=== PATIENT | female | born 1960 | race Caucasian/White ===

== ENCOUNTER 2018-03-17 21:18 | Emergency (ER) | payer OTHER ==
[~2018-03-17] VITALS: Ht 170.2 cm; Wt 124.7 kg
[2018-03-17] MEDS ORDERED: COZAAR 50 MG TA50 M1 (21:34)
[2018-03-17] MEDS ORDERED: ATENOLOL 50MG T50 M1 (21:34)
[2018-03-17] MEDS ORDERED: CELEXA20 MG (21:35)
[2018-03-17] MEDS ORDERED: CYMBALTA60 MG (21:35)
[2018-03-17] MEDS ORDERED: METFORMIN (21:36)
[2018-03-17] MEDS ORDERED: FEXOFENADINE (21:36)
[2018-03-17] MEDS ORDERED: CHOLECALCIFEROL (21:36)
[2018-03-17] MEDS ORDERED: IBUPROFEN 800800 M1 (21:37)
[2018-03-17] MEDS ORDERED: VITAMIN D3400 UNIT (21:37)
[2018-03-17] MEDS ORDERED: MEDROLDOSEPACK PO (22:52)
[2018-03-17] MEDS ORDERED: NAPROSYN500 MG PO (22:52)
[2018-03-17] MEDS ORDERED: ZANAFLEX4 MG PO (22:52)
[2018-03-17 23:05] VITALS: BP 145/72
== END 2018-03-17 23:05 | disposition home or self-care (01) ==
LOC: M.ERS 21:18
DX: M54.31 Sciatica, right side (principal); I10 Essential (primary) hypertension; E11.9 Type 2 diabetes mellitus without complications; F32.9 Major depressive disorder, single episode, unspecified

== ENCOUNTER 2019-05-04 11:55 | Emergency (ER) | payer OTHER ==
[~2019-05-04] VITALS: Ht 170.2 cm; Wt 111.1 kg
[~2019-05-04 11:55] MED LIST: ATENOLOL 50MG T50 M1; CELEXA20 MG; CHOLECALCIFEROL; COZAAR 50 MG TA50 M1; CYMBALTA60 MG; FEXOFENADINE; IBUPROFEN 800800 M1; MEDROLDOSEPACK PO; METFORMIN; NAPROSYN500 MG PO; VITAMIN D3400 UNIT; ZANAFLEX4 MG PO
[2019-05-04] MEDS ORDERED: ALLEGRA ALLERG180 MG PO (12:11)
[2019-05-04] MEDS ORDERED: CRANBERRY200 MG PO (12:11)
[2019-05-04] MEDS ORDERED: TRAMADOL 50 MG50 MG PO (12:11)
[2019-05-04] MEDS ORDERED: OMEPRAZOLE 20 M20 M1 PO (12:11)
[2019-05-04] MEDS ORDERED: ZOFRAN4 MG PO (12:57)
[2019-05-04] MEDS ORDERED: HYDROCODON-ACE1 EAC7 PO (12:57)
[2019-05-04 13:21] VITALS: BP 121/87
== END 2019-05-04 13:22 | disposition home or self-care (01) ==
LOC: M.ERS 11:55
DX: S42.292A Other displaced fracture of upper end of left humerus, initial encounter for closed fracture (principal); I10 Essential (primary) hypertension; E11.9 Type 2 diabetes mellitus without complications; F32.9 Major depressive disorder, single episode, unspecified; M79.7 Fibromyalgia; Z96.651 Presence of right artificial knee joint; Z88.5 Allergy status to narcotic agent; Z88.1 Allergy status to other antibiotic agents; Z88.0 Allergy status to penicillin; W01.0XXA Fall on same level from slipping, tripping and stumbling without subsequent striking against object, initial encounter; Y92.89 Other specified places as the place of occurrence of the external cause; Y93.89 Activity, other specified; Y99.8 Other external cause status

== ENCOUNTER → 2020-05-21 | Outpatient (CLI) | payer OTHER ==
[~2020-05-21] MED LIST changes: +ALLEGRA ALLERG180 MG PO; +CRANBERRY200 MG PO; +HYDROCODON-ACE1 EAC7 PO; +OMEPRAZOLE 20 M20 M1 PO; +TRAMADOL 50 MG50 MG PO; +ZOFRAN4 MG PO
== END ==
LOC: M.LAB 15:19
PROVIDERS: ATTEND Orthopaedic Surgery
DX: Z01.812 Encounter for preprocedural laboratory examination (principal); Z11.59 Encounter for screening for other viral diseases